=== PATIENT | male | born 1985 | race Caucasian/White ===

== ENCOUNTER 2016-03-28 17:14 | Emergency (ER) | payer OTHER ==
--- NOTE | 2016-03-28 18:38 | ED Physician Documentation ---
PD HPI UPPER EXT INJURY - Stated complaint Stated Complaint: R THUMB TIP CUT OFF - Chief complaint Chief Complaint: Ext Problem - History obtained from History obtained from: Patient - History of Present Illness Location: Right, Finger (thumb) Type of injury: Laceration (cut tip of thumb off) Timing - onset: Today Timing - details: Abrupt onset, Still present (having pain and bleeding still.) Associated symptoms: No: Weakness, Numbness Contributing factors: No: Anticoagulated Similar symptoms before: Has not had sx before Recently seen: Not recently seen Review of Systems Neurologic: denies: Focal weakness, Numbness, Near syncope PD PAST MEDICAL HISTORY - Past Medical History Past Medical History: Yes Cardiovascular: None Respiratory: None Endocrine/Autoimmune: None Psych: Anxiety - Past Surgical History Past Surgical History: Yes HEENT: Tonsil/Adenoidectomy - Present Medications Home Medications: Ambulatory Orders Medication Instructions Recorded Confirmed Ibuprofen [Motrin] 600 mg PO TID #20 tab 03/28/16 Sertraline [Zoloft] 50 mg PO DAILY 03/28/16 03/28/16 Tramadol HCl 50 mg PO Q6H PRN #20 tablet 03/28/16 - Allergies Allergies/Adverse Reactions: Allergies Allergy/AdvReac Type Severity Reaction Status Date / Time codeine AdvReac Unknown Verified 11/30/14 15:26 - Social History Does the pt smoke?: No Smoking Status: Never smoker Does the pt drink ETOH?: Yes Does the pt have substance abuse?: No - Immunizations Immunizations are current?: Yes PD ED PE NORMAL - Vitals Vital signs reviewed: Yes - General General: Alert and oriented X 3, No acute distress, Well developed/nourished - Derm Derm: Normal color, Warm and dry - Extremities Extremities: Other (right thumb tip with 1 x 0.5 cm avulsion to fatty tissue just in center, and small vessel bleeding when he lets go of direct pressure. Does not affect nailbed itself, but is distal. ) - Neuro Neuro: No motor deficit, No sensory deficit Results - Vitals Vitals: Oxygen O2 Source Room air PD MEDICAL DECISION MAKING - ED course Complexity details: considered differential (it was hurting him a lot and still bleeding small vessel type if not having direct pressure. I injected local anesth directly, to help both symptomes (digital block would hurt less but the local allowed bleeding to about stop). Then Monsels solution applied and then pressure dressing. ), d/w patient Departure - Departure Disposition: 01 Home, Self Care Clinical Impression: Avulsion, finger tip Qualifiers: Encounter type: initial encounter Qualified Code(s): S61.209A - Unspecified open wound of unspecified finger without damage to nail, initial encounter Condition: Stable Record reviewed to determine appropriate education?: Yes Instructions: ED Avulsion Dermal Follow-Up: [facility] [Provider Group] Prescriptions: Ibuprofen [Motrin] 600 mg PO TID #20 tab Tramadol HCl 50 mg PO Q6H PRN #20 tablet PRN Reason: Pain Comments: Leave initial dressing on for 1-2 days, then remove and start wound care of cleaning twice daily with soap and water and apply ointment. This should heal over in the course of 1-2 weeks. Ibuprofen three times daily. Add tramadol if needed for pain. Follow up PMD for recheck in about 4-5 days. Discharge Date/Time: 03/28/16 19:31
[2016-03-28] MEDS ORDERED: traMADol 50 MG TABLET PO STA (18:48)
[2016-03-28] MEDS ORDERED: IBUPROFEN 600 MG TABLET PO STA (18:48)
[2016-03-28] MEDS ORDERED: traMADol 50 MG TABLET PO ONE (18:53)
[2016-03-28] MEDS ORDERED: IBUPROFEN 400 MG TABLET PO ONE (18:54)
[2016-03-28] MEDS ORDERED: IBUPROFEN 600 MG TABLET PO ONE (18:56)
[2016-03-28 19:32] VITALS: BP 127/68
== END 2016-03-28 19:31 | disposition home or self-care (01) ==
LOC: ED 17:14
DX: S61.001A Unspecified open wound of right thumb without damage to nail, initial encounter (principal); W45.8XXA Other foreign body or object entering through skin, initial encounter; Y93.G1 Activity, food preparation and clean up
CPT/HCPCS: 64455; 99283; A9270

== ENCOUNTER 2016-11-08 13:06 | Emergency (ER) | payer OTHER ==
[2016-11-08 13:25] VITALS: BP 142/88
[2016-11-08] MEDS ORDERED: HYDROcod/ACETAM 5/325 MG TABLET PO STA (15:05)
--- NOTE | 2016-11-08 15:07 | ED Physician Documentation ---
PD HPI BACK PAIN - Stated complaint Stated Complaint: BACK PX - Chief complaint Chief Complaint: Back Pain - History obtained from History obtained from: Patient - History of Present Illness Timing - onset: Other (4 weeks of right-sided back pain radiating into the buttock but no further, worse with bending or straightening the right leg. There is no associated weakness, numbness, tingling, saddle anesthesia, incontinence, or fever.) Review of Systems Constitutional: denies: Fever, Chills Ears: denies: Drainage/discharge Nose: denies: Rhinorrhea / runny nose, Congestion GI: denies: Abdominal Pain, Nausea, Vomiting PD PAST MEDICAL HISTORY - Past Medical History Past Medical History: Yes Cardiovascular: None Respiratory: None Endocrine/Autoimmune: None Psych: Anxiety - Past Surgical History Past Surgical History: Yes HEENT: Tonsil/Adenoidectomy - Present Medications Home Medications: Ambulatory Orders Medication Instructions Recorded Confirmed Ibuprofen [Motrin] 600 mg PO TID #20 tab 03/28/16 11/08/16 Sertraline [Zoloft] 50 mg PO DAILY 03/28/16 11/08/16 Cyclobenzaprine [Flexeril] 10 mg PO TID PRN #20 tablet 11/08/16 HYDROcod/ACETAM 5/325 [Ovid 5/325] 1 - 2 ea PO Q6H PRN #15 tablet 11/08/16 - Allergies Allergies/Adverse Reactions: Allergies Allergy/AdvReac Type Severity Reaction Status Date / Time No Known Drug Allergies Allergy Verified 11/08/16 14:39 - Social History Does the pt smoke?: No Smoking Status: Never smoker Does the pt drink ETOH?: Yes ETOH Use: Beer Does the pt have substance abuse?: No - Immunizations Immunizations are current?: Yes - POLST Patient has POLST: No PD ED PE NORMAL - Vitals Vital signs reviewed: Yes - General General: Alert and oriented X 3, No acute distress - Abdomen Abdomen: Soft, Non tender - Back Back: Other (Muscular tenderness of the right paralumbar spine, no midline tenderness. The patient has equal and normal Achilles and patellar reflexes bilaterally. Normal sensation in all areas of the legs. Patient denies saddle anesthesia. Normal strength in flexion-extension at the ankles, knees, and flexion of the hips.) - Neuro Neuro: Alert and oriented X 3, Normal speech - Psych Psych: Normal mood, Normal affect Results - Vitals Vitals: Vital Signs - 24 hr 11/08/16 13:23 Temperature 36.4 C L Heart Rate 68 Respiratory 16 Rate Blood Pressure 142/88 H O2 Saturation 100 Oxygen O2 Source Room air PD MEDICAL DECISION MAKING - ED course ED course: This patient has seemingly uncomplicated musculoskeletal back pain. The patient has no "red flags." Specifically denies IV drug use, fevers, incontinence, saddle anesthesia. Spinal epidural abscess was considered, given that the patient has no fever, is not diabetic, has no spinal tenderness, does not use IV drugs, and has no bilateral neurologic symptoms, the diagnosis of spinal epidural abscess is considered exceedingly unlikely. The [place] prescription monitoring program was queried with regard to this patient. No concerning findings were found. Departure - Departure Disposition: 01 Home, Self Care Clinical Impression: Back pain Qualifiers: Back pain location: low back pain Chronicity: acute Back pain laterality: right Sciatica presence: without sciatica Qualified Code(s): M54.5 - Low back pain Condition: Good Record reviewed to determine appropriate education?: Yes Instructions: ED Low Back Pain Injury Prescriptions: Cyclobenzaprine [Flexeril] 10 mg PO TID PRN #20 tablet PRN Reason: Pain HYDROcod/ACETAM 5/325 [Ovid 5/325] 1 - 2 ea PO Q6H PRN #15 tablet PRN Reason: Pain Comments: Call your doctor to arrange a follow-up appointment, make the next available appointment. In the interim, return anytime if worse or if new symptoms develop. Your blood pressure was elevated today on check into the emergency department. This does not mean that you have hypertension, it is a common phenomenon to come to the emergency department and have elevated blood pressure. I recommend that she see your primary care physician within the week to have it rechecked when you are feeling better. Do not drink or drive while taking narcotic pain medication. Note that many narcotic pain relievers also contain Tylenol/acetaminophen. Please ensure that your total dose of acetaminophen from all sources does not exceed 3 g (3000 mg) per day. You may get constipated while on this medication. Take a stool softener such as Colace twice a day while you are on it. Also add an [id number] laxative such as senna or MiraLAX on any day that you do not have a bowel movement. If you received a narcotic pain medication or sedative while in the emergency department, do not drive for the next 24 hours. Forms: Activity restrictions
[2016-11-08] MEDS ORDERED: HYDROcod/ACETAM 5/325 MG TABLET ONE (15:15)
== END 2016-11-08 15:15 | disposition home or self-care (01) ==
LOC: ED 13:06
DX: M54.5 Low back pain (principal)
CPT/HCPCS: 99283; A9270

== ENCOUNTER 2017-09-09 11:01 | Emergency (ER) | payer OTHER ==
--- NOTE | 2017-09-09 12:22 | ED Physician Documentation ---
PD HPI UPPER EXT INJURY - Stated complaint Stated Complaint: R HAND INJ - Chief complaint Chief Complaint: Ext Problem - History obtained from History obtained from: Patient - History of Present Illness Location: Right, Hand Type of injury: Fall (tripped on steps and fell forward, right hand getting struck between ground and luggage bag. Pain and bruising right hand MCPs area, with pain on ROM. Hoped it would be better over few days. Still hurts. Concerned about fracutre.) Timing - onset: How many days ago (4) Timing - duration: Days Timing - details: Abrupt onset, Still present Improved by: Rest Worsened by: Moving, Palpating Associated symptoms: Swelling, Discolored. No: Weakness, Numbness Similar symptoms before: Has not had sx before Recently seen: Not recently seen Review of Systems Skin: denies: Abrasion (s), Laceration (s) Neurologic: denies: Focal weakness, Numbness, Altered mental status, Head injury PD PAST MEDICAL HISTORY - Past Medical History Past Medical History: Yes Cardiovascular: None Respiratory: None Endocrine/Autoimmune: None Psych: Anxiety - Past Surgical History Past Surgical History: Yes HEENT: Tonsil/Adenoidectomy - Present Medications Home Medications: Ambulatory Orders Medication Instructions Recorded Confirmed Ibuprofen [Motrin] 600 mg PO TID #30 tab 09/09/17 - Allergies Allergies/Adverse Reactions: Allergies Allergy/AdvReac Type Severity Reaction Status Date / Time No Known Drug Allergies Allergy Verified 11/08/16 14:39 - Social History Does the pt smoke?: No Smoking Status: Never smoker Does the pt drink ETOH?: Yes Does the pt have substance abuse?: No - Immunizations Immunizations are current?: Yes - POLST Patient has POLST: No PD ED PE NORMAL - Vitals Vital signs reviewed: Yes - General General: Alert and oriented X 3, No acute distress, Well developed/nourished - Derm Derm: Normal color, Warm and dry - Extremities Extremities: Other (right hand dorsally at ulnar side with tenderness, bruising , swelling. No gross deformity. ) - Neuro Neuro: Alert and oriented X 3, No motor deficit, No sensory deficit, Normal speech Results - Vitals Vitals: Oxygen O2 Source Room air - Rads (name of study) right hand Radiology: Prelim report reviewed, EMP read contemporaneously (no fractures) PD MEDICAL DECISION MAKING - ED course Complexity details: reviewed results (no fractures), considered differential, d/ w patient - Sepsis Event Vital Signs: Oxygen O2 Source Room air Departure - Departure Disposition: 01 Home, Self Care Clinical Impression: Contusion of right hand Qualifiers: Encounter type: initial encounter Qualified Code(s): S60.221A - Contusion of right hand, initial encounter Fall from slip, trip, or stumble Qualifiers: Encounter type: initial encounter Qualified Code(s): W01.0XXA - Fall on same level from slipping, tripping and stumbling without subsequent striking against object, initial encounter Condition: Stable Record reviewed to determine appropriate education?: Yes Instructions: ED Contusion Hand [facility] Prescriptions: Ibuprofen [Motrin] 600 mg PO TID #30 tab Comments: Ibuprofen 3 times a day. Add Tylenol if needed for pains. Splint for the 2 main fingers injured to decrease motion at the knuckles. This may help reduce swelling a little bit sooner. Less heavy use of that hand for a few more days. There are no fractures seen on x-ray. Forms: Activity restrictions Discharge Date/Time: 09/09/17 13:25
[2017-09-09] MEDS ORDERED: IBUPROFEN 600 MG TABLET PO STA (12:35)
--- NOTE | 2017-09-09 13:00 | XRAY Report ---
Procedure Date: 09/09/2017 Accession Number: [id number] / [id number] Procedure: XR - Hand 3 View RT CPT Code: FULL RESULT: EXAM: RIGHT HAND RADIOGRAPHY EXAM DATE: 09/09/2017 12:50 PM. CLINICAL HISTORY: Pain, predominantly in the area of the second and third metacarpal since injury 09/04/2017. COMPARISON: None. TECHNIQUE: 3 views. FINDINGS: Bones: Normal. No fractures or bone lesions. Joints: Normal. No subluxations. Soft Tissues: Normal. No soft tissue swelling. IMPRESSION: Normal hand radiography. [facility]
[2017-09-09 13:18] VITALS: BP 144/71
== END 2017-09-09 13:25 | disposition home or self-care (01) ==
LOC: ED 11:01
DX: S60.221A Contusion of right hand, initial encounter (principal); W01.0XXA Fall on same level from slipping, tripping and stumbling without subsequent striking against object, initial encounter; Y92.008 Other place in unspecified non-institutional (private) residence as the place of occurrence of the external cause
CPT/HCPCS: 73130; 99283; A9270